=== PATIENT | female | born 1980 ===

== ENCOUNTER → 2018-07-21 | Emergency (ER) | payer OTHER ==
[~2018-07-21] VITALS: Ht 175.3 cm; Wt 74.4 kg
[~2018-07-21] MED LIST: HUMIRA40 MG/0.2; LEVSIN/SL0.125 MG SL; MILLIPRED10 MG/5 ML; PEPCID40 MG PO; PHENERGAN25 MG PO
== END | disposition home or self-care (01) ==
LOC: ER 14:32
DX: K62.89 Other specified diseases of anus and rectum (principal); K64.4 Residual hemorrhoidal skin tags; N83.292 Other ovarian cyst, left side

== ENCOUNTER → 2018-10-24 | Outpatient (CLI) | payer OTHER | END | disposition home or self-care (01) | LOC: LAB 09:49 | DX: D64.89 Other specified anemias (principal) ==

== ENCOUNTER 2018-10-31 09:11 | Outpatient (CLI) | payer OTHER | END 2018-10-31 14:52 | disposition home or self-care (01) | LOC: MRI 09:11 | DX: R53.1 Weakness (principal) | CPT/HCPCS: 70553 ==

== ENCOUNTER 2019-05-07 18:29 | Emergency (ER) | payer OTHER ==
[~2019-05-07] VITALS: Ht 175.3 cm; Wt 72.6 kg
== END 2019-05-07 22:37 | disposition home or self-care (01) ==
LOC: ER 18:29
DX: G51.0 Bell's palsy (principal); J32.8 Other chronic sinusitis

== ENCOUNTER 2019-05-26 16:41 | Emergency (ER) | payer OTHER ==
[~2019-05-26] VITALS: Ht 170.2 cm; Wt 71.2 kg
[2019-05-26] MEDS ORDERED: PANADOL EXTRA500 MG (17:47)
== END 2019-05-26 20:24 | disposition home or self-care (01) ==
LOC: ER 16:41
DX: H65.93 Unspecified nonsuppurative otitis media, bilateral (principal); R07.0 Pain in throat

== ENCOUNTER 2019-06-01 08:19 | Outpatient (CLI) | payer OTHER ==
[~2019-06-01 08:19] MED LIST changes: +PANADOL EXTRA500 MG
== END 2019-06-01 08:27 | disposition home or self-care (01) ==
LOC: LAB 08:19
DX: E78.49 Other hyperlipidemia (principal); Z00.00 Encounter for general adult medical examination without abnormal findings; E55.9 Vitamin D deficiency, unspecified; R42 Dizziness and giddiness; R51 Headache; G45.0 Vertebro-basilar artery syndrome

== ENCOUNTER 2019-06-08 08:55 | Outpatient (CLI) | payer OTHER | END 2019-06-08 08:59 | disposition home or self-care (01) | LOC: SONOGRAMA 08:55 | DX: E04.8 Other specified nontoxic goiter (principal) ==

== ENCOUNTER 2019-06-09 09:16 | Emergency (ER) | payer OTHER ==
[~2019-06-09] VITALS: Ht 170.2 cm; Wt 68.9 kg
== END 2019-06-09 16:16 | disposition home or self-care (01) ==
LOC: ER 09:16
DX: R10.11 Right upper quadrant pain (principal)

== ENCOUNTER 2019-09-14 06:24 | Emergency (ER) | payer OTHER ==
[~2019-09-14] VITALS: Ht 175.3 cm; Wt 65.8 kg
== END 2019-09-14 10:51 | disposition home or self-care (01) ==
LOC: ER 06:24
DX: R10.12 Left upper quadrant pain (principal); K50.90 Crohn's disease, unspecified, without complications

== ENCOUNTER → 2021-01-28 08:12 | Outpatient (CLI) | payer OTHER | END | disposition home or self-care (01) | LOC: LAB 08:12 | PROVIDERS: ATTEND Radiology Diagnostic Radiology | DX: D35.1 Benign neoplasm of parathyroid gland (principal) ==